=== PATIENT | male | born 1950 | race Caucasian/White ===

== ENCOUNTER → 2025-02-07 10:15 | Outpatient (REF) | payer MEDICARE, OTHER, SELFPAY | LOC: RCS 10:15 | PROVIDERS: ATTENDING PHYSICIAN Physician Assistant Medical | DX: I49.9 Cardiac arrhythmia, unspecified (principal) | CPT/HCPCS: 93225; 93226 ==

== ENCOUNTER → 2025-02-09 10:05 | Outpatient (REF) | payer MEDICARE, OTHER, SELFPAY | LOC: RCS 10:05 | PROVIDERS: ATTENDING PHYSICIAN Physician Assistant Medical | DX: I49.9 Cardiac arrhythmia, unspecified (principal) | CPT/HCPCS: 93306 ==